=== PATIENT | female | born 1955 | race American Indian/Alaskan Native ===

== ENCOUNTER 2017-01-14 06:34 | Day surgery (SDC) | payer OTHER ==
[2016-10-02 10:15] VITALS: BMI 31.2
[2017-01-14] MEDS ORDERED: Propofol 10 mg/ml Inj (20 ML) ONE (07:31)
[2017-01-14] MEDS ORDERED: Midazolam 2 MG/2 ML VIAL ONE (07:31)
[2017-01-14] MEDS ORDERED: ceFAZolin IV 2 gm in Dextrose 1 GM/50 ML BAG IVPB ONE (07:50)
[2017-01-14] MEDS ORDERED: Bupivacaine HCl 0.5% PF (10 ml) Inj ONE ×3 (07:50→10:38)
[2017-01-14] MEDS ORDERED: Lidocaine 1% Inj (20ml) ONE (07:50)
[2017-01-14] MEDS ORDERED: Lactated Ringer's 1,000 ML IV ONE ×2 (08:00→10:30)
--- NOTE | 2017-01-14 11:08 | PCM.SURG1 ---
Surgeon's Initial Post Op Note - Surgeon's Notes Surgeon: Dr. Maciel Elevated Work Platform Operator: Drs. Davenport PGY 3 and Jesús PGY 2 Type of Anesthesia: General Endo Pre-Operative Diagnosis: Painful right foot Hallux abductovalgus deformity and second digit hammertoe deformity Operative Findings: See dictation Post-Operative Diagnosis: Same Operation Performed: Opening base wedge osteotomy right foot, 2nd digit hammertoe deformity with arthrex hardware Specimen/Specimens Removed: bone Estimated Blood Loss: EBL {In ML}: 20 Blood Products Given: N/A Drains Used: No Drains Post-Op Condition: Good Date of Surgery/Procedure: 01/14/17 Time of Surgery/Procedure: 07:45
[2017-01-14] MEDS ORDERED: HYDROmorphone 0.5 mg/0.5 ml ISec IVP PRN (12:18)
[2017-01-14] MEDS ORDERED: Oxycodone/Acetaminophen 5/325 mg Tab PO PRN (12:18)
[2017-01-14 12:37] VITALS: RESP 20; O2SAT 100
[2017-01-14 14:55] VITALS: BP 135/69; PULSE 69; TEMP 97
--- NOTE | 2017-01-14 16:39 | RAD ---
PROCEDURE: Right Foot Radiographs. HISTORY: s/p right foot surgery COMPARISON: None. FINDINGS: BONES: Dorsal talar head -neck osseous hypertrophy present. Small inferior calcaneal spurs present. First metatarsal osteotomy and bunion surgical changes with hardware fixation present JOINTS: . Soft tissue swelling or foot dorsal and plantar aspect plantar casting support present Normal. SOFT TISSUES: As above OTHER FINDINGS: None. IMPRESSION: Postop changes
--- NOTE | 2017-01-18 12:37 | CP.PCM.PN ---
Subjective - Date & Time of Evaluation Date of Evaluation: 01/14/17 Time of Evaluation: 07:45 - Subjective Subjective: Biomechanic and Gait Evaluation: Right foot and ankle decreased arch height, hallux abductovalgus noted with metatarsus adductus Ankle ROM limited to dorsiflexion - perpendicular to the leg, no pain or crepitation with ROM. MTJ and STJ wnl inversion>eversion, 1st metatarsal elevated, 1st MTPJ abducted and tracking. No pain with ROM, no crepitation with ROM. Metatarsus adductus noted. Hammertoe deformity noted at 2nd digit. Hyperkeratotic lesion noted dorsal PIPJ and sub-metatarsal head of the 3rd. Gait examination - pt walks with early heel off and antalgic late stance phase. No abductory twist noted, heel in rectus position. Objective - Vital Signs/Intake and Output Vital Signs (last 24 hours): Temp Pulse Resp BP Pulse Ox 97 F L 69 20 135/69 100 01/14/17 12:10 01/14/17 12:10 01/14/17 12:10 01/14/17 12:10 01/14/17 12:10
--- NOTE | 2017-01-18 13:13 | OP ---
PROCEDURE DATE: 01/14/2017 SURGEON: Dr. Mani Maciel ASSISTANTS: Dr. Davenport, PGY-[address] Espinosa, PGY-2 ANESTHESIA: General. PREOPERATIVE DIAGNOSES: 1. Right foot painful hallux abductovalgus deformity. 2. Right foot painful second digit hammertoe deformity. POSTOPERATIVE DIAGNOSES: 1. Right foot painful hallux abductovalgus deformity. 2. Right foot painful second digit hammertoe deformity. PROCEDURES: 1. Right foot Opening base wedge osteotomy with Arthrex metal hardware for the painful hallux abductovalgus deformity. 2. Right foot Second digit arthroplasty for the painful second digit painful hammertoe deformity. INDICATION: The patient is a 62-year-old female with the above-mentioned diagnosis. The patient has exhausted conservative treatment at this time and now requests surgical intervention. The patient signed the consent after careful explanation of risks, benefits, complications, and alternatives for surgical procedure. No guarantees were given nor implied. PREPARATION: The patient was taken to the operating room and placed on the operating table in a supine position. A well-padded ankle tourniquet was placed on the patient's right ankle in a supramalleolar position. After induction of general anesthesia, the patient's right foot was prepped and draped with the usual sterile manner. Esmarch was utilized to exsanguinate the patient's right lower extremity and the pneumatic ankle tourniquet was inflated to 250 mmHg and the procedure began. PROCEDURE #1: Opening base wedge osteotomy with Arthrex metal hardware for the painful hallux abductovalgus deformity: Attention was directed to the dorsal medial aspect of the first metatarsal right foot where the first metatarsal medial cuneiform joint was identified under fluoroscopy. Once it was identified , utilizing a skin marker, a line was drawn medial to the extensor hallucis longus tendon and at the dorsal medial aspect of the right foot. The incision extended from the first metatarsophalangeal joint all the way to the first metatarsal medial cuneiform joint. It measured about 8 cm in length. Utilizing a #15 blade, an incision was created. Sharp and blunt dissection were carried down to deeper tissue. The extensor hallucis longus tendon was identified and retracted. The medial dorsal cutaneous nerve was identified and retracted dorsally and the vein was identified and retracted dorsally as well. Once down to the capsule at the first metatarsal medial cuneiform joint, a linear incision was made in the capsule just proximal to that joint. Care was taken to avoid violating the joint itself. The capsule and periosteum were reflected dorsally and plantarly off the operative site. Utilizing a bone saw at this time, a perpendicular cut was created about 1.5 cm distal to the first metatarsal medial cuneiform joint, perpendicular to the weightbearing surface area. Care was taken to avoid breaking the lateral cortex. At this time, utilizing an osteotome and mallet and the harp from the Arthrex opening base wedge set, the osteotomy site was opened and plasticized slowly until the Arthrex plate was able to sit with its wedge within the osteotomy site. The wedge was placed at the dorsal medial aspect of the osteotomy site creating an arch and swinging over the first metatarsal to decrease the intermetatarsal angle between the first and second metatarsals. The screws were placed utilizing Arthrex protocol and the wound was irrigated with copious amounts of sterile normal saline. At this time, attention was directed to the distal aspect of the first metatarsal where a Silver bunionectomy was performed and the medial painful eminence was resected and passed off the operative field. At this time, a lateral release was also performed ensuring the adductor tendon was released and the lateral sesamoid was released from its attachments at the plantar aspect of the first metatarsal head. A capsulotomy was performed. The wounds were irrigated with copious amounts of sterile normal saline. The periosteum and capsule were re-approximated with 2-0 and 3-0 vicryl sutures. The subcuticular skin was re-approximated with 4-0 vicryl suture and skin was re-approximated with 4-0 prolene sutures. PROCEDURE #2: Right foot Second digit arthroplasty for the painful second digit painful hammertoe deformity. Attention was directed to the dorsal aspect of the 2nd digit where a linear incision was made over the proximal interphalangeal joint, utilizing a #15 blade. Dissection was carried deeper using sharp and blunt dissection. Once down to the capsule, using a [place] blade, a transverse incision was created across the extensor tendon and through the capsule. The medial and lateral tendons were released using a [place] blade. The extensor tendon was released proximally and held utilizing a hemostat proximally. A hammertoe blade was utilized to resect the head of the proximal phalanx and passed off the operative field. The wounds were irrigated with copious amounts of sterile normal saline. The tendon was re-approximated with 4-0 vicryl suture and the skin was re- approximated with 4-0 prolene suture. The right foot was injected with 20 cc of 0.5% marcaine plain. The foot was dressed with xeroform and dry sterile dressing and a well compressed posterior splint. Post-operative condition: Patient tolerated anesthesia and procedure well. She was escorted to the recovery room with vital signs and neurovascular status intact to the right lower extremity. The patient's Doretha Davenport DPM Mani Maciel DPM cc: [id number] TT: 01/18/2017 10:44:13 en MTDD
== END 2017-01-14 13:40 | disposition home or self-care (01) ==
LOC: C.SDS 06:34
PROVIDERS: ATTEND Podiatrist Foot & Ankle Surgery
DX: M20.11 Hallux valgus (acquired), right foot (principal); M20.41 Other hammer toe(s) (acquired), right foot
CPT/HCPCS: 28285; 28296; 73620; 88304; 97116; 97161; C1713; C1769; G8978; G8979; J0690; J2250; J2405; J2704; J3010; J7120

== ENCOUNTER 2018-01-13 05:46 | Day surgery (SDC) | payer OTHER ==
[2016-10-02 10:15] VITALS: BMI 31.2
[2018-01-13 06:37] VITALS: RESP 18
[2018-01-13] MEDS ORDERED: Bupivacaine Liposomal Inj 20 ml INJ ONE (07:33)
--- NOTE | 2018-01-13 07:41 | CP.PCM.PN ---
Subjective - Date & Time of Evaluation Date of Evaluation: 01/13/18 Time of Evaluation: 07:34 - Subjective Subjective: 63 year old female seen in preoperative holding area for left foot bunionectomy , second digit hammertoe correction. Patient AAOx3, denies n/v/f/c/sob at this time. Objective - Vital Signs/Intake and Output Vital Signs (last 24 hours): Temp Pulse Resp BP Pulse Ox 97.8 F 88 18 136/88 97 01/13/18 06:03 01/13/18 06:03 01/13/18 06:03 01/13/18 06:03 01/13/18 06:03 - Constitutional Appears: Well, Non-toxic, No Acute Distress - Respiratory Exam Respiratory Exam: NORMAL BREATHING PATTERN - Cardiovascular Exam Cardiovascular Exam: REGULAR RHYTHM - Neurological Exam Neurological Exam: Oriented x3 - Psychiatric Exam Psychiatric exam: Normal Affect, Normal Mood - Additional Findings Additional findings: DERMATOLOGIC: Skin is intact, no open lesions or rashes. Skin color normal. VASCULAR: DP/PT pulses 2/4, C[employer] WORK[employer]<3 seconds, skin temperature normal NEUROLOGIC: Gross sensation intact, motor function intact ORTHOEPDIC: Hallux valgus deformity of the left foot with tracking hallux. There is prominent medial eminence. Second digit is contracted at the PIPJ. There is mild contracture of the remaining lesser digits of the left foot. There is moderate increase in IM angle of the L first metatarsal. There is decreased ankle dorsiflexion to 5 degrees with knee extension, 8 degrees with knee flexion on the left side. STJ normal ROM with no crepitus. First MTPJ ROM to 50 degrees of dorsiflexion, 30 degrees plantarflexion without crepitus. The first metatarsal parabola is slightly short in comparison to the lesser metatarsals. Upon stance there is mild collapse of the medial arch with mild hyperpronation. Gait is normal but slightly antalgic due to pain guarding. Impression: Mild hyperpronation and mild equinus deformity with hallux valgus deformity and hammertoe deformity of the second digit,left foot. Assessment and Plan - Assessment and Plan (Free Text) Assessment: Left foot hallux valgus deformity, second digit hammertoe Plan: Patient seen and evaluated, all questions answered. Patient signed consent. Patient NPO since midnight last night. Patient given post operative instructions. Patient to OR for left foot bunionectomy and second digit hammertoe correction.
[2018-01-13] MEDS ORDERED: Midazolam 2 MG/2 ML VIAL ONE (07:46)
[2018-01-13] MEDS ORDERED: Propofol 10 mg/ml Inj (20 ML) ONE (07:46)
[2018-01-13] MEDS ORDERED: ceFAZolin 1 gm in NS 1 GM/100 ML BAG IVPB ONE ×2 (07:57→08:00)
[2018-01-13] MEDS ORDERED: Sodium Chloride 0.9% 20 ML IV ONE (09:53)
--- NOTE | 2018-01-13 10:31 | PCM.SURG1 ---
Surgeon's Initial Post Op Note - Surgeon's Notes Surgeon: Dr. Maciel Black Puller: Ana Espinosa PGY-3, Mary La PGY-2 Type of Anesthesia: General LMA Pre-Operative Diagnosis: Left foot hallux valgus, left second digit hammertoe deformity Operative Findings: See dictation Post-Operative Diagnosis: Same Operation Performed: Left foot opening base wedge osteotomy, reverdin osteotomy , second digit hammertoe correction Specimen/Specimens Removed: none Estimated Blood Loss: EBL {In ML}: 5 Blood Products Given: N/A Drains Used: No Drains Post-Op Condition: Good Date of Surgery/Procedure: 01/13/18 Time of Surgery/Procedure: 08:00
[2018-01-13] MEDS ORDERED: Oxycodone/Acetaminophen 5/325 mg Tab PO PRN ×2 (10:32)
[2018-01-13] MEDS ORDERED: HYDROmorphone 0.5 mg/0.5 ml ISec IVP PRN (10:33)
--- NOTE | 2018-01-13 12:38 | RAD ---
PROCEDURE: Left Foot Radiographs. HISTORY: s/p left foot bunionectomy COMPARISON: None. FINDINGS: Distal left lower extremity cast limits evaluation of fine bony detail. Lateral 1st metatarsal fixation plate with screws and the metatarsal head screw are seen with adjacent postsurgical changes, likely from bunionectomy. Pin fixation of the 2nd digit is seen. IMPRESSION: Findings as above.
[2018-01-13 14:10] VITALS: BP 139/83; PULSE 83; TEMP 97.8; O2SAT 99
--- NOTE | 2018-01-14 09:25 | OP ---
PROCEDURE DATE: 01/13/2018 PREOPERATIVE DIAGNOSES: 1. Left foot hallux valgus deformity. 2. Left foot second digit hammertoe deformity. POSTOPERATIVE DIAGNOSES: 1. Left foot hallux valgus deformity. 2. Left foot second digit hammertoe deformity. PROCEDURE: 1. Left foot fifth metatarsal osteotomy. 2. Left foot Reverdin bunionectomy. 3. Left foot extensor tendon Z lengthening of the hallux. 4. Second digit hammertoe correction with tenotomy. SURGEON: Mani Blakely DPM DROSS SKIMMER: Ana Espinosa DPM, PGY-3; Mary La DPM, PGY-2. INDICATIONS: The patient is 63-year-old female with the above mentioned diagnoses. The patient has exhausted conservative treatment at this time and is now requesting surgical intervention. The patient signed the consent. After careful explanation of risks, benefits, complications, and alternatives for the surgical procedure, no guarantees were given nor implied. Ancef 2 gm IV was given to the patient prior to the procedure. NPO status was confirmed prior to taking the patient to the operating room. PREPARATION: The patient was brought to the operating room and placed on the operating room table in supine position. A well-padded pneumatic thigh tourniquet was placed on the patient's left thigh. After induction of sedation, the left lower extremity was prepped and draped in usual sterile manner and the procedure began. DESCRIPTION OF PROCEDURE: Procedure #1 is left foot opening base wedge osteotomy. Attention was directed to the first metatarsal of the left foot where an approximately 8 cm linear longitudinal incision was created overlying the proximal shaft of the first metatarsal extending distally to extend to the head of the first metatarsal. Incision was deepened through the subcutaneous tissues with care being taken to identify and retract all vital neurovascular structures. All bleeders were cauterized and ligated as necessary. At this time, a periosteal capsular incision was created over the first metatarsal extending from just distal to the base all the way to the metatarsal head. Using a Comer elevator, the periosteum was reflected medially and laterally thus exposing the metatarsal shaft into the operative site. At this time, an 18-gauge needle was inserted into first cuneiform joint and positioning was done under fluoroscopy. Once the drain was identified, a 1.5 cm distal marah was created on the metatarsal shaft for the site of the osteotomy. At this time, a sagittal saw was used to create an osteotomy from medial to lateral with the lateral hinge remaining intact. Next, a small osteotome was inserted in order to carefully open the osteotomy site. Once, a small opening was created, the harp instrument from the Arthrex set was inserted and slowly one-half turn at a time used to open the osteotomy to create the wedge. The medial cortex remained intact throughout this portion of the procedure. Next, the measuring device from the Arthrex set was inserted and 4.5 mm wedge was measured. At this time, the appropriate wedge plate was selected from the anterior aspect and was inserted into the wedge created in metatarsal. The plate was tacked down using the BB-Tac system proximally and then the holes were drilled and sequentially filled with appropriate sagittal screws, following standard AO principles and techniques. Once this was completed, the final positioning of the plate and the wedge was checked under fluoroscopy and was noted to be excellent with excellent correction of the deformity noted. Next, bone putty was injected into the wedge site and an autograph was also inserted from the distal metatarsal area. Procedure #2: Reverdin bunionectomy of the left foot. Attention was then directed to the distal aspect of the first metatarsal phalangeal joint. At this time, the capsule was dissected free of the metatarsal head. Attention was then directed to the first interspace where a #15 was used to create a soft tissue attachment. Next, the transverse metatarsal ligament was transacted as well as the conjoint tendon of the abductor muscle. Next, the short extensor brevis tendon was identified and also tenotomized. After completing the lateral release, the contracture was noted to be improved. At this time, attention was redirected to medial aspect of the first metatarsal head where a Reverdin-Green osteotomy was created. A plantar shelf was first created using sagittal saw from medial to laterals. Next, the Reverdin cuts were made from the medial to lateral, taking out a small wedge of bone, which was then used as autograft for the opening base wedge. The wedge was then carefully closed down, and a bone clip was used to hold the osteotomy site in place. Next, a K-wire from the osteotomy site was driven from proximal to distal through the osteotomy site. Next, the overdrill was performed over the K-wire and an appropriate headless fiber screws from [employer] was selected and inserted over the K-wire with excellent compression noted. The K-wire was removed and maintenance of the correction was maintained. At this time, the wound was copiously irrigated with normal sterile saline and deep tissues were closed using 0 Vicryl and 3-0 Vicryl, subcuticular closure using 4-0 Vicryl and the skin was closed using 4-0 Prolene. Prior to skin closure, procedure #3 is extensor Z lengthening of the EHL tendon was performed. Using a malleable retractor, the EHL tendon was isolated from the surrounding soft tissues. Using a #15 blade, a V-type lengthening was performed of the tendon and were sutured together using 3-0 Vicryl. Procedure #4 is right foot second digit hammertoe correction. Attention was directed to the proximal interphalangeal joint of the right foot second digit, where an approximately 2.5 cm linear longitudinal incision was created overlying the joint. The incision was deepened through the subcutaneous tissues with care being taken to identify and retract all vital neurovascular structures. All bleeders were cauterized and ligated as necessary. At this time, a transverse tenotomy was performed overlying the proximal interphalangeal joints. The joints were identified and entered and the collateral ligament were then sharply transected as well. Next, using a small sagittal saw, the distal aspect of the proximal phalanx was resected and passed from the operating site. Next, a 0.045 K-wire was inserted from proximal to distal through the middle phalanx exiting the toe. This was then retrograded through the proximal phalanx and through the head of the metatarsal as well. Positioning of the toe was inspected under fluoroscopy and noted to be in proper position. There was excellent correction maintained. Next, an extensor tenotomy was performed of the second extensor tendon. A small stab incision was created at the metatarsophalangeal joint in the second digit. The extensor tendon was identified and sharply transected using a #15 blade. Contracture of the digit was immediately released at this time. The wound was copiously irrigated using normal sterile saline. Extensor tendon was sutured using 4-0 Vicryl, subcuticular closure was done using 4-0 Vicryl, and the skin was closed using 4-0 Prolene. Following this procedure, a total of 30 mL of Exparel was injected in a local block fashion to the left foot. The foot was dressed using Xeroform, 4 x 4, Benito and Kerlix, and a posterior splint was applied. POSTOPERATIVE CONDITION: The patient tolerated the anesthesia and procedure well and was escorted to the recovery room with vital signs stable and neurovascular status intact to the left foot. The patient will followup with Dr. Blakely in his office next week. Ana Espinosa DPM SAMMY
== END 2018-01-13 13:00 | disposition home or self-care (01) ==
LOC: C.SDS 05:46
PROVIDERS: ATTEND Podiatrist Foot & Ankle Surgery
DX: M20.12 Hallux valgus (acquired), left foot (principal); M20.42 Other hammer toe(s) (acquired), left foot
CPT/HCPCS: 28285; 28299; 73630; 88304; 97116; 97161; G8978; G8979; G8980; J0690; J2250; J2704; J3010

== ENCOUNTER 2018-11-01 07:30 | Day surgery (SDC) | payer OTHER ==
[2016-10-02 10:15] VITALS: BMI 31.2
[2018-11-01] MEDS ORDERED: Bupivacaine HCl 0.5% PF (10 ml) Inj ONE (09:48)
[2018-11-01] MEDS ORDERED: Lidocaine 2% MPF (5 ml) Inj ONE (09:48)
[2018-11-01] MEDS ORDERED: ceFAZolin 1 gm in NS 1 GM/100 ML BAG IVPB ONE ×2 (09:49→10:03)
[2018-11-01] MEDS ORDERED: Midazolam 2 MG/2 ML VIAL ONE (10:00)
[2018-11-01] MEDS ORDERED: Propofol 10 mg/ml Inj (20 ML) ONE (10:00)
[2018-11-01] MEDS ORDERED: ePHEDrine 50 mg/ml Inj ONE (10:10)
[2018-11-01] MEDS ORDERED: Bupivacaine Liposomal Inj 20 ml INFIL ONE (12:39)
[2018-11-01] MEDS ORDERED: Bupivacaine 0.25% 20 ML INJ IJ ONE (12:45)
[2018-11-01] MEDS ORDERED: HYDROmorphone 0.5 mg/0.5 ml ISec IVP PRN (13:23)
--- NOTE | 2018-11-01 13:25 | PCM.SURG1 ---
Surgeon's Initial Post Op Note - Surgeon's Notes Surgeon: Dr. Maciel Instructor Creeler: Liyah Conrad PGY2, Efren Nieto PGY3, Devonte Tobin Type of Anesthesia: General LMA Pre-Operative Diagnosis: 1. Right foot HAV. 2. Right foot 2nd digit hardware. 3. Left foot HAV. 4. Left foot 2nd MPJ contracture Operative Findings: see operative report. m: (R)Arthrex 9mm staple, 2-0 vicryl, 3-0 vicryl, 4-0 vicryl, 4-0 prolene; (L)Arthrex 11mm staple. i: (R)20cc 1:1 mixture 0.25% marcaine & exparel; (L)20cc 1:1 mixture 0.25% marcaine & exparel Post-Operative Diagnosis: same as above Operation Performed: 1. Right foot Arthur osteotomy. 2. Right foot modified Brandon bunionectomy. 3. Right foot 2nd digit PIPJ arthroplasty with MPJ release. 4. Left foot Arthur osteotomy. 5. Left foot FHL tenotomy. 6. Left foot 2nd MPJ release with extensor tenotomy Specimen/Specimens Removed: n/a Estimated Blood Loss: EBL {In ML}: 1 Blood Products Given: N/A Drains Used: No Drains Date of Surgery/Procedure: 11/01/18 Time of Surgery/Procedure: 13:26
[2018-11-01] MEDS ORDERED: Oxycodone/Acetaminophen 5/325 mg Tab PO PRN ×2 (13:27)
[2018-11-01 14:08] VITALS: O2SAT 98
[2018-11-01 15:42] VITALS: PULSE 74; RESP 14; TEMP 97.7
[2018-11-01 16:19] VITALS: BP 129/68
--- NOTE | 2018-11-01 16:28 | RAD ---
Date of service: 11/01/2018 PROCEDURE: Bilateral Feet Radiographs. HISTORY: s/p bunion, 2nd digit hammertoe COMPARISON: 01/13/2018 left foot; right foot 01/14/2017 FINDINGS: BONES: Right Foot no interval fracture seen.. Plate and screws over proximal 1st metatarsal as before. Osteotomy site healing suggested. Medial 1st metatarsal head bunionectomy changes noted. Osteotomy site 1st proximal phalanx with interval hardware present. Os peroneum noted previously obscured.. Osseous hypertrophic changes 5th metatarsal base-similar inferior calcaneal spur-similar Left Foot: No interval fracture seen. Plate and screws postsurgical changes 1st metatarsal unchanged. Screw 1st metatarsal head bunionectomy changes inferred noted. Lateral 1st metatarsal cortical thickening-an interval change. Interval metallic U shape in over 1st proximal phalanx. Prior pin 2nd digit removed. Inferior calcaneal spurring-similar JOINTS: Right Foot: 1st metatarsal-phalangeal joint [id number] Left Foot: Interval progressive 1st metatarsal-phalangeal joint space narrowing. SOFT TISSUES: Right Foot: Normal. Left Foot: Normal. OTHER FINDINGS: Bilateral hammertoe like orientations- IMPRESSION: Interval postop changes in addition to background postop changes. No interval fracture seen. No interval hardware failure seen. Other findings as above.
--- NOTE | 2018-11-08 06:29 | PCM.OP ---
Operative Report - Operative Report Date of Surgery/Procedure: 11/01/18 Time of Surgery/Procedure: 13:00 Surgeon: Dr. Blakely Utility Lineman: Liyah Conrad PGY2, Efren Nieto PGY3, Devonte Tobin PGY1 Anesthesia/Sedation: General LMA Pre-Operative Diagnosis: 1. Right foot HAV. 2. 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 3. Left foot HAV. 4. Left foot 2nd MPJ contracture Post-Operative Diagnosis: Same as above Indication for Surgery: Patient is a 63 year old female with the above mentioned diagnoses. Patient is treated by Dr. Blakely in office on an outpatient basis where she has exhausted multiple forms of conservative treatment. Patient seeks surgical intervention at this time. Patient signed the consent after careful explanation of risks, benefits, alternatives, and complications to procedure and wishes to proceed. No guarantees were given nor implied. NPO was confirmed prior to bringing the patient into the operating room. Operative Findings: See procedure description Procedure/Operation Description: The patient was brought into the operating room and placed on the operating room table in a supine position. A timeout was performed for identification of the correct patient and procedure. After the induction of General LMA, both feet were then prepped and draped in normal sterile manner and the procedure began. Procedure #1: Right foot Modified Brandon bunionectomy Attention was then directed to the dorsal aspect of the first metatarsal head, right foot where an approximately 6 cm linear longitudinal incision was made medial and parallel to the tendon of the extensor hallucis longus and involved the contour of the deformity. The incision was deepened through the subcutaneous tissues using sharp and blunt dissection. Care was taken to identify and retract all vital neurovascular structures. All bleeders were cauterized and ligated as necessary. Please note at this time there was a significant amount of scar tissue and adhesions surrounding the extensor tendons. Attention was then directed to the first interspace via the original incision. Again here it was noted there was a significant amount of scar tissue and adhesions. The conjoined tendon of the adductor hallucis muscle was then identified and transected at its attachments to the base of the proximal phalanx of the hallux, and the adhesions were freed from the 1st metatarsal. At this time, the lateral contracture present on the hallux was noted to be reduced. At this time, an linear capsulotomy was performed over the dorsal aspect of the first metatarsophalangeal joint. The periosteal and capsular structures were then carefully dissected free of their osseous attachments and reflected medially and laterally thus exposing the head of the first metatarsal into the operative site. Next utilizing an sagittal bone saw, the dorsal and medial prominences were resected and passed from the operative field. Please note following this an attempt to remove previous hardware was made however the screws had bony growth in the threads and within the cannulated portion preventing successful removal. Procedure #2: Right foot Arthur osteotomy Via the original incision the periosteal and capsular structures were reflected medially and laterally exposing the base of the proximal phalanx to the operative site. Next utilizing an sagittal bone saw dorsal to plantar proximal osteotomy was created in the proximal phalanx of the right hallux, a wedge of bone was resected and passed from the operative field with the apex of the deformity pointing laterally and the arms pointing medially distal and medially proximal. Following standard AO principles and techniques an Arthrex DynaNite Nitinol staple was inserted and placed across the osteotomy site with excellent compression noted. Correction of the deformity was noted to be excellent at this time. Procedure #3: Right foot 2nd digit PIPJ arthroplasty with 2nd MPJ release Attention was then directed to the dorsal aspect of the 2nd digit of R foot wher e an approximately 4 cm linear longitudinal incision was made overlying the 2nd digit cicatrix from previous hammertoe correction, extending from the dorsum of the MTPJ and extending distally over the PIPJ of the 2nd digit. The incision was deepened through subcutaneous tissue with care being taken to identify and retract all vital neurovascular structures. All bleeders were cauterized and ligated as necessary. At this time, a transverse tenotomy and capsulotomy was performed to the PIPJ. The head of the proximal phalanx was then freed of its capsular and ligamentous attachments. Next utilizing a sagittal saw, the head of the proximal phalanx was resected and passed from the operative site. Next a fresh 15 blade was utilized to make a linear incision through the capsule of the 2nd MTPJ down the level of bone. Using a mcglammry elevator, the ligamentous attachments of the joint were then freed. Next, while loading the plantar aspect of the 2nd metatarsal head the extension deformity of the MTPJ and flexion deformity were noted to be excellent and the 2nd digit more rectus in position. Procedure #4: Left foot Arthur osteotomy Attention was directed to the dorsal asepct of the left 1st metatarsal where it was noted to have a hypertrophic scar from previous bunion surgery. Utilizing a #15 blade, an incision was made to excise the scar which was medial and parallel to the tendon of the extensor hallucis longus. The incision was deepened through the subcutaneous tissues using sharp and blunt dissection. Care was taken to identify and retract all vital neurovascular structures. All bleeders were cauterized and ligated as necessary. Please note at this time there was a significant amount of scar tissue and adhesions surrounding the extensor tendons. At this time, a linear capsulotomy was made overlying the left 1st metatarsophalangeal joint extennding to the head of the proximal phalanx. The periosteal and capsular structures were reflected medially and laterally exposing the base of the proximal phalanx to the operative site. Next utilizing an sagittal bone saw dorsal to plantar proximal osteotomy was created in the proximal phalanx of the right hallux, a wedge of bone was resected and passed from the operative field with the apex of the deformity pointing laterally and the arms pointing medially distal and medially proximal. Following standard AO principles and techniques an Arthrex DynaNite Nitinol staple was inserted and placed across the osteotomy site with excellent compression noted. Correction of the deformity was noted to be excellent at this time. Procedure #5: Left foot FHL tenotomy Attention was directed to the left 1st metatarsophalangeal joint plantar sulcus where it was noted to be tight in nature. Using a #15 blade a 1 cm stab incision was made, transecting the FHL tendon. Folliwing this the hallux was noted to float in a more rectus position and in anatomic alignment. Procedure #6: Left foot 2nd MPJ release with extensor tenotomy Attention was directed to the dorsal aspect of the left 2nd MPJ where it was noted to be contracted dorsally. A #15 blade was utilized to make a linear incision through the capsule of the 2nd MTPJ down the level of bone. The extensor tendon was noted to be contracted so thus was tenotomized. Using a mcglammry elevator, the ligamentous attachments of the joint were then freed. Next, while loading the plantar aspect of the 2nd metatarsal head the extension deformity of the MTPJ and flexion deformity were noted to be excellent and the 2nd digit more rectus in position. All wounds were then flushed with copious amounts of sterile saline. Periosteal and capsular structures were reapproximated using 2-0 and 3-0 vicryl, subc utaneous tissue was reapproximated using 4-0 vicryl and skin was reapproximated using 4-0 prolene. Post-operative injections included: (R)20cc 1:1 mixture 0.25% marcaine & exparel; (L)20cc 1:1 mixture 0.25% marcaine & exparel Estimated Blood Loss: 10 cc Complications: None Discharge & Condition: Patient tolerated the procedure and anesthesia well and was escorted to the recovery room with vital signs stable and neurovascular status intact to both lower extremities. Patient will follow up with Dr. Blakely in office on an outpatient basis.
== END 2018-11-01 17:07 | disposition home or self-care (01) ==
LOC: C.SDS 07:30
PROVIDERS: ATTEND Podiatrist Foot & Ankle Surgery
DX: M20.12 Hallux valgus (acquired), left foot (principal); M20.42 Other hammer toe(s) (acquired), left foot; M20.41 Other hammer toe(s) (acquired), right foot
CPT/HCPCS: 28299; 28308; 73630; J0690; J2001; J2250; J2704; J2765; J3010